=== PATIENT | male | born 1980 | race Two or more races ===

== ENCOUNTER 2024-09-12 20:27 | Emergency (ER) | payer MEDICAID, SELFPAY ==
[2024-09-12 20:27] VITALS: BMI 37.5
[2024-09-12 21:04] VITALS: BP 167/97; PULSE 107; RESP 18; TEMP 36.8; O2SAT 96
--- NOTE | 2024-09-12 21:19 | PD.EDRME ---
Rapid Medical Screening Exam [facility] Arrival date/time: 09/12/24 20:27 43M with no significant PMH presents to ED with R eye pain and bleeding after he accidentally hit himself in the eye with something. Chief Complaint: Eye Problems Vital signs: Vital Signs Temperature 98.2 F 09/12/24 21:04 Pulse Rate 107 H 09/12/24 21:04 Respiratory Rate 18 09/12/24 21:04 Blood Pressure 167/97 H 09/12/24 21:04 Pulse Oximetry (%) 96 09/12/24 21:04 Oxygen Delivery Method Room Air 09/12/24 21:04
--- NOTE | 2024-09-12 21:39 | XR_ITS ---
Examination: CT orbits without intravenous contrast. 2-D sagittal reconstructions. 3-D reconstructions. Date and time of exam:September 12, 2024 1056 hours INDICATIONS: Injury to the right orbit today, I pain CTDI: vol (mGy):17.9 DLP: (mGycm):235 Technique: Multiple axial images of maxillofacial region, 3.0 mm slice thickness. 2-D sagittal and coronal reconstructions. 3-D reconstructions. Low dose protocols were performed. One or more of the following dose reduction techniques were used; automated exposure control, adjustment of the mA and/or KV according to patient size, use of iterative reconstruction technique. Findings: The optic globes appear intact No displacement of the optic lenses Symmetrical optic nerves No retro-orbital hematoma Mild soft tissue swelling anterior to the right optic globe The orbital rims appear intact No nasal bone fracture No depression zygomatic arches IMPRESSION: The optic globes appear intact No retro-orbital hematoma Mild soft tissue swelling anterior to the right optic globe Orbital rims appear intact No opaque foreign body
--- NOTE | 2024-09-12 21:40 | PD.EDEYE ---
ED Eye Problem RME/HPI General Chief complaint: Eye Problems Stated complaint: RT EYE INJURY Time Seen by Provider: 09/12/24 21:37 Arrival date/time: 09/12/24 20:27 RME / HPI RME / HPI Narrative: 43-year-old with no significant past medical history, came in for evaluation regarding a right eye injury. Patient accidentally hit himself with a can of jalapeno resulting into pain, and abrasion to the cornea. Patient denies any blurry vision or changes in vision. Patient complained of pain, described as dull ache, severity moderate. Also complained of blood-tinged tears. Denies any headache denies any other injury no medication was taken prior to arrival. Related Data Previous Rx's ?Medication ?Instructions ?Recorded ibuprofen 800 mg tablet 800 mg PO TID PRN pain #30 tabs 09/12/24 neomycin 3.5 mg-polymyxin 10,000 1 drp ophthalmic (eye) Q6H 7 days 09/12/24 unit-hydrocort 10 mg/mL eye #7.5 mL drop,susp Allergies Allergy/AdvReac Type Severity Reaction Status Date / Time No Known Allergies Allergy Verified 05/21/23 05:35 Review of Systems Review of Systems Narrative Review of Systems: Review of system reviewed and within normal limits except mentioned in HPI ED Exam Narrative Physical exam: VITAL SIGNS: Reviewed. GENERAL APPEARANCE: Alert and interactive, follows commands, no acute distress, HEAD AND FACE: Non-traumatic. ENT: PERRL, injected conjunctiva, abrasion noted at 3 o'clock position in the conjunctiva, cornea is intact, eyelid no trauma, no streaming noted on the right eyeball, conjunctiva cornea mucous membrane moist. Full range of motion of the eyeball without any limitation. Able to see finger counting at 2 feet on the right eye NECK: Supple, nontender, no nuchal rigidity. CHEST: No tenderness, no crepitus, no paradoxical movement, no retractions. LUNGS: Clear, well ventilated, symmetric, no rales, no wheezing, no ronchi, no stridor, good breath sounds bilaterally. HEART: Regular rate, regular rhythm, no murmur, no gallops. ABDOMEN: Soft, positive bowel sounds, nondistended, no guarding, nontender, no rebound, no masses, RECTAL: Deferred. GENITAL: Deferred. NEUROLOGICAL: Gross motor function intact sensory function intact, Appropriate for age. MUSCULOSKELETAL: low back nontender, full range of motion. EXTREMITIES: Nontender, full range of motion. SKIN: Color pink, dry, no rash, no lacerations, no abrasions, no contusions. LYMPHATICS: Deferred. Course Quality Measures none Orders Category Date Time Status Visual Acuity NOW Care 09/12/24 21:[address] orbit BI wo con Stat Exams 09/12/24 21:39 Completed Fluorescein Sodium [[id number]] Med 09/12/24 21:19 Discontinued 1 mg RIGHT EYE X1 ONE HYDROcodone*/APAP 5/325 [[place] 5/325] Med 09/12/24 21:39 Discontinued 1 tab PO X1 ONE TARIQ/POLY/HC (Cortisporin) OP [Cortisporin Op Bettye] Med 09/12/24 21:39 Discontinued See Dose Instructions RIGHT EYE X1 ONE TETRACAINE Op Ana 0.5% [Pontocaine Op Ana 0.5%] Med 09/12/24 21:19 Discontinued 1 drop RIGHT EYE X1 ONE Tet,Diphth,Pertuss(Acell)-Tdap [Boostrix Vacc] Med 09/12/24 21:39 Discontinued 0.5 ml IMI .ONCE ONE Vital Signs Vital signs: Vital Signs Temperature 98.2 F 09/12/24 21:04 Pulse Rate 107 H 09/12/24 21:04 Respiratory Rate 18 09/12/24 21:04 Blood Pressure 167/97 H 09/12/24 21:04 Pulse Oximetry (%) 96 09/12/24 21:04 Oxygen Delivery Method Room Air 09/12/24 21:04 Eye MDM Narrative MDM Narrative:: 43-year-old with no significant past medical history, came in for evaluation regarding a right eye injury. Patient accidentally hit himself with a can of [place] resulting into pain, and abrasion to the cornea. Patient denies any blurry vision or changes in vision. Patient complained of pain, described as dull ache, severity moderate. Also complained of blood-tinged tears. Denies any headache denies any other injury no medication was taken prior to arrival. Eye was examined under the Gardner lamp. Tetracaine ophthalmic drop was administered to the eye and fluorescein strip was applied and was then illustrated under the Gardner lamp. Abrasion noted on the conjunctiva, at 3 o'clock position, no abrasion noted on the cornea, no foreign body noted .no streaming noted. Eye was then irrigated with copious amounts of eye stream. Procedure was well tolerated by patient. Verbalized understanding. CT scan of the orbit came back unremarkable. Results discussed with the patient Patient appears nontoxic and hemodynamically stable. Patient discharged home and instructed to follow-up with primary care provider in 24 to 48 hours. Instructed to return to the emergency department immediately if worsening of symptoms Patient data External records reviewed:: None Clinical information provided by:: none Social determinants that could affect healthcare access:: none Patient has the following chronic illnesses:: None How is presenting disease/condition affected by chronic disease/condition?: no chronic disease Evaluation data The following diagnostics were reviewed and interpreted by me:: radiology exam(s) Lab and/or radiology exams considered but not ordered:: none Interpretation Summary: CT scan of the orbit came back unremarkable as read by radiologist. Medications / Prescriptions Medications or Prescriptions considered but not ordered:: None Medication administrations:: Medication Administration History Discontinued Medications Hydrocodone Bitart/Acetaminophen (Hydrocodone/Apap 5/325 Tablet) 1 tab PO X1 ONE Stop: 09/12/24 21:40 Last Admin: 09/12/24 22:23 Dose: 1 tab Documented By: Diphtheria/Tetanus/Acell Pertussis (Diphth,Pertuss(Acell),Tet Vac 0.5 Ml Vial) 0.5 ml IMi .ONCE ONE Stop: 09/12/24 21:40 Last Admin: 09/12/24 22:23 Dose: 0.5 ml Documented By: Fluorescein Sodium (Fluorescein Sod 1 Mg Strp) 1 mg RIGHT EYE X1 ONE Stop: 09/12/24 21:20 Last Admin: 09/12/24 22:23 Dose: 1 mg Documented By: Neomycin/Polymyxin/Hydrocortisone (Tariq/Poly/Hc (Cortisporin) Op Susp 7.5 Ml Btl) 0 drop RIGHT EYE X1 ONE Stop: 09/12/24 21:40 Last Admin: 09/12/24 22:23 Dose: 2 drops Documented By: Tetracaine HCl (Tetracaine Pf Op Ana 0.5% 4 Ml Drpette) 1 drop RIGHT EYE X1 ONE Stop: 09/12/24 21:20 Last Admin: 09/12/24 22:22 Dose: 1 drop Documented By: Patient received [place], Boostrix, Cortisporin eyedrops, and tetracaine Consultations Consultation(s) initiated? (list below): No Diagnosis Eye Problem Differential Diagnosis: corneal abrasion, conjunctivitis and other (Conjunctival abrasion) Most likely diagnosis given after review of the tests above:: Conjunctival abrasion Admission Indicated Admission indicated?: not indicated Explain why admission is indicated or not indicated:: Stable Admission Request Was there a request for admission?: No Admission Attestation Admission request attestation: None Disposition Plan Disposition Plan: Discharge Discharge Attestation Discharge Attestation: The patient was given an opportunity to ask questions and understood the discharge instructions. Discharge instructions specifically effects, indications for sooner follow up or return to the emergency department, and the expected course of current diagnosis. Patient condition: Stable Discharge Plan Plan Patient Disposition: HOME (Self Care) Disposition Comment: Stable Prescriptions/Referrals Prescriptions/Med Rec: New [id number] 3.5-10,000-10 mg-unit-mg/mL drops,suspension 1 drp ophthalmic (eye) Q6H 7 Days Qty: 7.5 0RF ibuprofen 800 mg tablet 800 mg PO TID PRN (Reason: pain) Qty: 30 0RF Problem List Clinical Impression: Abrasion of conjunctiva Patient/Caregiver Discharge Instructions Discharge Activity: activity as tolerated Education Materials: How to Use Eye Drops, Bleeding in the Front of the ... Additional Instructions: Thank you for the opportunity for serving you today. You are stable for discharged . You are advised to: Follow-up with your PCP in a.m. and asked for referral to transformation specialist MD Return to ED for worsening of symptoms Increase oral fluids Take medication as prescribed/Cortisporin eyedrops 1 drop every 6 hours for 7 days Use your eye shield for the next 7 days Print Language: [place] Stand Alone Forms: Dilia Award Info., Patient Portal Info Letter PA/DARNELL Supervising Physician ZEB/DARNELL Supervising Physician: MD Addison
[2024-09-12] MEDS: TETRACAINE PF OP SOL 0.5% 4 ML DRPETTE 1 DROP RIGHT EYE (22:22)
[2024-09-12] MEDS: DIPHTH,PERTUSS(ACELL),TET VAC 0.5 ML VIAL IMi (22:23)
[2024-09-12] MEDS: FLUORESCEIN SOD 1 MG STRP RIGHT EYE (22:23)
[2024-09-12] MEDS: HYDROcodone/APAP 5/325 TABLET 1 TAB PO (22:23)
[2024-09-12] MEDS: NEO/POLY/HC (Cortisporin) OP SUSP 7.5 ML BTL RIGHT EYE (22:23)
== END 2024-09-12 23:29 | disposition home or self-care (01) ==
LOC: SERX 23:10
PROVIDERS: Emergency Provider Emergency Medicine
DX: S05.01XA Injury of conjunctiva and corneal abrasion without foreign body, right eye, initial encounter (principal); Z23 Encounter for immunization; W22.8XXA Striking against or struck by other objects, initial encounter
CPT/HCPCS: 70480; 90471; 90715; 99284; A9270

== ENCOUNTER 2025-05-04 09:42 | Emergency (ER) | payer MEDICAID, SELFPAY ==
[2025-05-04 09:43] VITALS: BMI 42.3
[2025-05-04 09:50] VITALS: BP 159/112; PULSE 109; RESP 18; TEMP 37.7; O2SAT 98
--- NOTE | 2025-05-04 09:56 | XR_ITS ---
Examination: CT soft tissue neck, with intravenous contrast. 2-D coronal reconstructions. 2-D sagittal reconstructions. Date and time of exam :May 04, 2025, 1255 hrs. Indications: Bilateral neck swelling with difficulty swallowing beginning 2 days ago. CTDI: vol (mGy):16.1 DLP: (mGycm):430 Technique: 1.25 mm axial sections of the neck of the obtained. Coronal and sagittal reconstructions have been obtained. Intravenous contrast administered 50 cc Isovue-370. Low dose protocols were performed. One or more of the following dose reduction techniques were used; automated exposure control, adjustment of the mA and/or KV according to patient size, use of iterative reconstruction technique. Findings: Maxillary antra are clear Enlarged soft tissue tonsillar prominence, discrete masslike area, 3.6 x 2.6 x 5.8 cm with significant effacement of the oropharyngeal airway Necrotic areas within this mass versus small abscesses, the largest 8 mm Epiglottis is not thickened The larynx does not exhibit mass Symmetrical thyroid glands Impression: Soft tissue left tonsillar mass, 3.6 x 2.6 x 5.8 cm, differential would include tonsillar carcinoma, tonsillar abscess Recommend short-term follow-up MRI soft tissue neck, pre and postcontrast, post antibiotic therapy
--- NOTE | 2025-05-04 09:57 | PD.EDRME ---
Rapid Medical Screening Exam RME Arrival date/time: 05/04/25 09:42 Chief Complaint: Dental/Oral/Throat Time Seen by Provider: 05/04/25 09:50 Vital signs: Vital Signs Temperature 99.8 F 05/04/25 09:50 Pulse Rate 109 H 05/04/25 09:50 Respiratory Rate 18 05/04/25 09:50 Blood Pressure 159/112 H 05/04/25 09:50 Pulse Oximetry (%) 98 05/04/25 09:50 Oxygen Delivery Method Room Air 05/04/25 09:50 E Narrative: Subjective fever, sore throat x3 days
[2025-05-04] MEDS: DEXAMETHASONE SOD PHOS INJ 10 MG/ML VIAL PO (10:18)
[2025-05-04 10:43] LABS: Basophils # (Auto) 0.1 Thou/mm3 (0.0-0.2); Basophils % (Auto) 0 % (0-2.5); Eosinophils # (Auto) 0.0 Thou/mm3 (0.0-0.5); Eosinophils % (Auto) 0 % (0-10); Hematocrit 48.9 % (41.0-53.0); Hemoglobin 16.3 g/dL (13.5-16.0); Immature Granulocytes Auto 0.06 Thou/mm3 (0.00-0.00); Lymphocytes # (Auto) 1.8 Thou/mm3 (1.0-4.8); Lymphocytes % (Auto) 10 % (10-50); Mean Corpuscular HGB Conc 33.3 g/dl (31.0-37.0); Mean Corpuscular Hemoglobin 28.7 pg (25.0-35.0); Mean Corpuscular Volume 86 fL (80-100); Monocytes # (Auto) 1.8 Thou/mm3 (0.0-0.8); Monocytes % (Auto) 10 % (0-12); Neutrophils # (Auto) 13.5 Thou/mm3 (1.8-7.7); Neutrophils % (Auto) 78 % (37-80); Nucleated Red Blood Cell # 0.00 Thou/mm3 (0.00-0.00); Nucleated Red Blood Cell % 0 /100 WBC (0); Platelet Count 222 Thou/mm3 (140-440); RDW Standard Deviation 44.1 fL (35.1-43.9); Red Blood Count 5.68 Miln/mm3 (4.50-5.90); White Blood Count 17.2 Thou/mm3 (3.8-10.6)
[2025-05-04 11:19] LABS: Alanine Aminotransferase 24 U/L (10-49); Albumin, Serum 4.7 gm/dL (3.5-5.0); Albumin/Globulin Ratio 1.3 (1.2-2.2); Alkaline Phosphatase 82 U/L (46-116); Anion Gap 10 (7-16); Aspartate Amino Transferase 21 U/L (0-34); BUN/Creatinine Ratio 10 Ratio (12-20); Bilirubin,Total 0.6 mg/dL (0.3-1.2); Blood Urea Nitrogen 10 mg/dL (9-23); Calcium 9.7 mg/dL (8.3-10.6); Calcium (Corrected) 9.7 mg/dL (8.5-10.1); Carbon Dioxide 23.5 mMol/L (20.0-31.0); Chloride 101 mMol/L (98-107); Creatinine (Component) 1.0 mg/dL (0.6-1.3); Estimated Creatinine Clearance 117.0 mL/min (>60); Globulin 3.5 gm/dL (2.3-3.5); Glucose 215 mg/dL (74-106); Osmolality,Calculated 273 (275-295); Potassium 3.8 mMol/L (3.4-5.1); Sodium 134 mMol/L (136-145); Total Protein 8.2 gm/dL (5.7-8.2); eGFR > 60 See Note
[2025-05-04 11:30] LABS: Strep A Rapid Negative (Negative)
--- NOTE | 2025-05-04 14:24 | PD.EDDENTL ---
ED Dental RME/HPI General Chief complaint: Dental/Oral/Throat Stated complaint: SORE THROAT/FEVER/BODY ACHES x 2 DAYS Time Seen by Provider: 05/04/25 09:50 Arrival date/time: 05/04/25 09:42 Limitations: no limitations RME / HPI RME / HPI Narrative: Subjective fever, sore throat x3 days DR. JENNIFER ARTHUR ED EVALUATION: 44-year-old male with past medical history of DM, hypothyroidism and hypertension presents to the Emergency Department with 2 days of fever, sore throat, and swelling to the back of the neck. Patient reports subjective fever and sore throat over the past 2 days. He has a history of oropharyngeal abscess as a child. Social history notable for heavy alcohol use, reporting 6?12 beers daily; denies ever having alcohol withdrawals. Related Data Previous Rx's ?Medication ?Instructions ?Recorded ibuprofen 800 mg tablet 800 mg PO TID PRN pain #30 tabs 09/12/24 Allergies Allergy/AdvReac Type Severity Reaction Status Date / Time No Known Allergies Allergy Verified 05/04/25 09:46 Review of Systems Review of Systems Systems Reviewed: All systems reviewed, normal except as documented Past Medical History Past Medical History CARDIAC: Positive Hypertension RESPIRATORY: Positive Asthma ENDOCRINE: Positive Diabetes Mellitus Type 2 Social History SMOKING STATUS: Current every day smoker SUBSTANCE USE: does not use ALCOHOL: Current ALCOHOL FREQUENCY: 3 or More Drinks per Day ED Exam General Limitations: Present no limitations General appearance: Present alert, in no apparent distress and other (chronically ill, decompensating; no stridor and handling well his secretions) Head Head exam: Present atraumatic and other (acute submandibular area edema) Eye Eye exam: Present normal appearance, PERRL and EOMI ENT ENT exam: Present mucous membranes moist and other (Uvula deviated to the right, patient with swelling to the left posterior oropharynx, erythema, patient with mild trismus, able to open his mouth approximately 2-1/2 finger widths. Patient with submandibular lymphadenopathy. Tongue is not elevated nor deviated.) Neck Neck exam: Present normal inspection, full ROM, trachea midline and lymphadenopathy; Absent tenderness Chest Chest inspection: Present normal inspection and symmetric chest wall rise Respiratory Respiratory exam: Present normal lung sounds bilaterally Cardiovascular Cardiovascular exam: Present normal rhythm and tachycardia Abdominal Exam Abdominal exam: Present soft; Absent distention, tenderness, guarding or rebound Extremities Exam Extremities exam: Present normal inspection and full ROM Back Exam Back exam: Present normal inspection and full ROM Neurological Exam Neurological exam: Present alert, oriented X3 and CN II-XII intact Psychiatric Psychiatric exam: Present normal affect and normal mood Skin Skin exam: Present warm, dry, intact and normal color Course Quality Measures none Orders Category Date Time Status Bedside Blood Glucose NOW Care 05/04/25 14:24 Completed Bedside COVID-19 Antigen Test NOW Care 05/04/25 09:48 Completed Bedside Influenza A&B Antigen Test NOW Care 05/04/25 09:[address] Screening NOW Care 05/04/25 09:56 Completed Structural Draftsman Q4H START 00 Care 05/04/25 14:24 Completed Insert IV NOW Care 05/04/25 14:24 Completed NPO NOW Care 05/04/25 14:25 Completed Strict Intake and Output Routine Care 05/04/25 14:24 Ordered Referral - Manager Convention Stat Cons 05/04/25 14:33 Active Diet NPO (NOW) Diet 05/04/25 14:[address] soft tissue neck w con Stat Exams 05/04/25 09:56 Completed XR chest 1V SEPSIS PROTOCOL Stat Exams 05/04/25 14:24 Completed Blood Culture (Lab) Stat Lab 05/04/25 10:12 Completed CBC Stat Lab 05/04/25 10:18 Completed CMP [Comprehensive Metabolic Panel] Stat Lab 05/04/25 10:18 Completed Lactate (Lactic Acid) Stat Lab 05/04/25 10:18 Completed Partial Thromboplastin Time Stat Lab 05/04/25 10:18 Completed Procalcitonin Stat Lab 05/04/25 10:18 Completed Prothrombin Time with INR Stat Lab 05/04/25 10:18 Completed Strep A Rapid Stat Lab 05/04/25 09:55 Completed Clindamycin 900Mg Ivpb [Cleocin/D5w Ivpb] 900 mg Med 05/04/25 14:22 Discontinued Pre-Mixed [Pre-mixed Bag] 1 bag IV X1 Dexamethasone Inj [Decadron Inj] Med 05/04/25 09:56 Discontinued 10 mg PO X1 ONE Piper/Tazo Inj [Zosyn Inj] 4.5 gm Med 05/04/25 14:23 Discontinued Sodium Chloride 0.9% (Pop) [NS 0.9% mini bag] 100 ml IV X1 Vancomycin Inj 2,000 mg Med 05/04/25 14:30 Discontinued Sodium Chloride 0.9% 500 ml [Ns] 500 ml IV X1 Vancomycin Pharmacy to Dose Med 05/04/25 14:23 Discontinued 1 each IV QDAY PRN Vancomycin/Ns 1 gm Ivpb 200 ml Med 05/04/25 22:00 Discontinued IV Q8HR Vancomycin/Ns 1 gm Ivpb 200 ml Med 05/05/25 14:00 Discontinued IV Q8HR Oxygen Delivery NOW RT 05/04/25 14:24 Completed Vital Signs Vital signs: Vital Signs Temperature 99.8 F 05/04/25 09:50 Pulse Rate 109 H 05/04/25 09:50 Respiratory Rate 18 05/04/25 09:50 Blood Pressure 159/112 H 05/04/25 09:50 Pulse Oximetry (%) 98 05/04/25 09:50 Oxygen Delivery Method Room Air 05/04/25 09:50 Dental / Oral MDM Narrative MDM Narrative:: I, Martha Narvaez, am scribing for and in the presence of Dr. Hansen. Patient p/w fever and swelling to his throat. Vital signs and exam as listed. Concern for RPA, [employer], Maury's angina. Patient has mild trismus. Has uvular deviation, and swelling to the left oropharyngeal area. Prior provider evaluated patient. Ordered labs and CT scan of the neck. With contrast. Labs with evidence of leukocytosis, 17.2, hemoglobin 16.3. Patient meets SIRS criteria. Sepsis order set placed. Labs without any acute electrolyte abnormalities. No transaminitis. Procalcitonin is not elevated. Strep swab is negative. Chest x-ray unremarkable. CT of the neck soft tissue with left tonsillar mass, 3.6 x 2.6 x 5.8 cm. Given size, and significant extension down the posterior oropharynx, provided patient with broad-spectrum antibiotics, ordered blood cultures, and initiated transfer for OMFS or ENT. 3:25p discussed case with [facility]. 4:34p Patient accepted to [facility] by Dr. Gia Hercules. Patient data External records reviewed:: [facility] previous records Clinical information provided by:: patient Social determinants that could affect healthcare access:: alcohol use (heavy alcohol use, reporting 6-12 beers daily) Patient has the following chronic illnesses:: Hypothyroidism and hypertension. He has a history of peritonsillar abscess as a child. How is presenting disease/condition affected by chronic disease/condition?: exacerbated by Evaluation data The following diagnostics were reviewed and interpreted by me:: lab results and radiology exam(s) Lab and/or radiology exams considered but not ordered:: none Interpretation Summary: Procedure(s): XR chest 1V SEPSIS PROTOCOL Accession Number(s): [id number] cc: Singh Christensen MD; Michael Medrano MD; Kaylie Hansen MD~ Examination: PA chest single view Technique: Upright PA chest single view Date and time: May 04, 2025, 1453 hrs. Indications: Fever bodyaches beginning 2 days ago. Findings: Mild prominence left ventricle Mild ectasia thoracic aorta. No pulmonary edema or pneumonia. The osseous structures are intact Impression: No pulmonary edema or pneumonia Dictated By: Michael Medrano MD Procedure(s): CT soft tissue neck w con Accession Number(s): [id number] cc: Singh Christensen MD; Michael Medrano MD; Delgado Fajardo PA-C~ Examination: CT soft tissue neck, with intravenous contrast. 2-D coronal reconstructions. 2-D sagittal reconstructions. Date and time of exam :May 04, 2025, 1255 hrs. Indications: Bilateral neck swelling with difficulty swallowing beginning 2 days ago. CTDI: vol (mGy):16.1 DLP: (mGycm):430 Technique: 1.25 mm axial sections of the neck of the obtained. Coronal and sagittal reconstructions have been obtained. Intravenous contrast administered 50 cc Isovue-370. Low dose protocols were performed. One or more of the following dose reduction techniques were used; automated exposure control, adjustment of the mA and/or KV according to patient size, use of iterative reconstruction technique. Findings: Maxillary antra are clear Enlarged soft tissue tonsillar prominence, discrete masslike area, 3.6 x 2.6 x 5.8 cm with significant effacement of the oropharyngeal airway Necrotic areas within this mass versus small abscesses, the largest 8 mm Epiglottis is not thickened The larynx does not exhibit mass Symmetrical thyroid glands Impression: Soft tissue left tonsillar mass, 3.6 x 2.6 x 5.8 cm, differential would include tonsillar carcinoma, tonsillar abscess Recommend short-term follow-up MRI soft tissue neck, pre and postcontrast, post antibiotic therapy Dictated By: Michael Medrano MD Medications / Prescriptions Medications or Prescriptions considered but not ordered:: none Medication administrations:: Medication Administration History Discontinued Medications Dexamethasone Sodium Phosphate (Dexamethasone Sod Phos Inj 10 Mg/Ml Vial) 10 mg PO X1 ONE Stop: 05/04/25 09:57 Last Admin: 05/04/25 10:18 Dose: 10 mg Documented By: ANITA Clindamycin Phosphate 900 mg/ (IV Miscellaneous Supplies) 50 mls @ 50 mls/hr IV X1 ONE Stop: 05/04/25 15:21 Last Infusion: 05/04/25 16:32 Dose: Infused Documented By: Admin: 05/04/25 16:02 Dose: 50 mls/hr Documented By: HARPREET Piperacillin Sod/Tazobactam (Sod 4.5 gm/ Sodium Chloride) 100 mls @ 200 mls/hr IV X1 ONE; Protocol Stop: 05/04/25 14:52 Last Infusion: 05/04/25 16:00 Dose: Infused Documented By: Admin: 05/04/25 15:27 Dose: 200 mls/hr Documented By: HARPREET Vancomycin HCl 2,000 mg/ (Sodium Chloride) 500 mls @ 150 mls/hr IV X1 ONE Stop: 05/04/25 17:49 Last Infusion: 05/04/25 18:05 Dose: 10 mg/min, 150 mls/hr Documented By: Admin: 05/04/25 16:33 Dose: 10 mg/min, 150 mls/hr Documented By: HARPREET Vancomycin/Sodium Chloride (Vancomycin/Ns 1 Gm Ivpb) 200 mls @ 120 mls/hr IV Q8HR JIM Stop: 05/12/25 13:59 Vancomycin/Sodium Chloride (Vancomycin/Ns 1 Gm Ivpb) 200 mls @ 120 mls/hr IV Q8HR JIM Stop: 05/05/25 07:39 Pharmacy Consult (Vancomycin Pharmacy To Dose 1 Each Each) 1 each IV QDAY PRN PRN Reason: PROTOCOL Stop: 06/03/25 14:22 see above Consultations Consultation(s) initiated? (list below): Yes Consultation #1 (Physician, Specialty, Details): We presented the case to [facility]. Time: 14:49 Consultation #2 (Physician, Specialty, Details): Discussed case with [facility]. Time: 15:25 Consultation #3 (Physician, Specialty, Details): Patient accepted to [facility] by Dr. Gia Hercules. Time: 16:34 Diagnosis Dental Differential Diagnosis: other (Deep neck space infection, peritonsillar abscess, and cellulitis.) Most likely diagnosis given after review of the tests above:: Oropharyngeal abscess Neck mass Admission Indicated Admission indicated?: not indicated Explain why admission is indicated or not indicated:: Patient needs higher level of care and will be transferred. Admission Request Was there a request for admission?: No Disposition Plan Disposition Plan: Transfer Critical Care Time Critical Care Time Critical Care Time: Yes Total Critical Care Time (min.): 60 Attestation: Due to a high probability of clinically significant, life threatening deterioration, the patient required my highest level of preparedness to intervene emergently and I personally spent this critical care time directly and personally managing the patient. This critical care time included obtaining a history; examining the patient; pulse oximetry; ordering and review of studies; arranging urgent treatment with development of a management plan; evaluation of patient's response to treatment; frequent reassessment; and, discussions with other providers. This critical care time was performed to assess and manage the high probability of imminent, life-threatening deterioration that could result in multi-organ failure. It was exclusive of separately billable procedures and treating other patients and teaching time. Please see MDM section and the rest of the note for further information on patient assessment and treatment. Discharge Plan Plan Patient Disposition: [facility] Pt Being Transferred to: [facility] Service Needed for Transfer: Otolaryngology (ENT) Prescriptions/Referrals Prescriptions/Med Rec: No Action ibuprofen 800 mg tablet 800 mg PO TID PRN (Reason: pain) Qty: 30 0RF Referrals: Singh Christensen MD [Primary Care Provider, Family Practice] - In 1 week Problem List Clinical Impression: Dental abscess Patient/Caregiver Discharge Instructions Print Language: Turkish Stand Alone Forms: Dilia Award Info., Patient Portal Info Letter
[2025-05-04 14:50] LABS: Lactate (Lactic Acid) 1.4 mMol/L (0.4-2.0)
[2025-05-04 14:51] VITALS: BP 165/109; PULSE 103; RESP 17; TEMP 37.2; O2SAT 97
[2025-05-04 14:51] LABS: INR 1.2 (0.9-1.3); Partial Thromboplastin Time 30.4 Seconds (22.0-36.0); Prothrombin Time 12.7 Seconds (9.0-12.2)
--- NOTE | 2025-05-04 14:55 | PC.CC ---
Addendum entered by Vandana Pillai RN 05/04/25 17:46: correction: transfer packet given to ROSA Cristina Addendum entered by Vandana Pillai RN 05/04/25 17:42: transfer packet w/1 CD taken to ROSA Moreira. Addendum entered by Vandana Pillai RN 05/04/25 17:01: Transport ETA OF 1800, call report to [phone]. ED Tracker updated with information Addendum entered by Vandana Pillai RN 05/04/25 17:01: 1609: Received call from ray Grewal accepted by Dr. Noe Hercules. Addendum entered by Vandana Pillai RN 05/04/25 15:12: 1510: Clinicals and imaging sent to [facility]. 1506: received call from Benito lehman/ [facility], ENT md stated this is a peritonsillar abscess, is not an ENT service and an ER doctor should be able to manage it. pt declined. Original Note: 1440: spoke to Benito lehman/ [facility], she spoke to Dr. Hansen. Benito will reach out to ENT and call me back. 1433: received transfer request for ENT for tonsillar mass. Clinicals sent to [facility] and [facility]
[2025-05-04 15:19] LABS: Procalcitonin 0.39 ng/ml (0.0-0.49)
[2025-05-04] MEDS: PIPER/TAZO INJ 4.5 GM in SODIUM CHLORIDE 0.9% (POP) 100 ML IV (15:27)
--- NOTE | 2025-05-04 16:01 | PC.NURSE ---
ED youth program director assist with IV abx administration while LVNs care for patient. Patients airway patent , in no distress, care ongoing
[2025-05-04] MEDS: CLINDAMYCIN 900MG IVPB 900 MG in PRE-MIXED 1 BAG 50 MG IV (16:02)
[2025-05-04] MEDS: Vancomycin Inj 2,000 MG in SODIUM CHLORIDE 0.9% 500 ML 500 ML 150 MG IV (16:33)
[2025-05-04 17:14] VITALS: BP 152/97; PULSE 112; RESP 18; TEMP 37.4; O2SAT 98
--- NOTE | 2025-05-04 17:17 | PC.NURSE ---
Report given to [facility] at 1716. Patient vitals updated. Patient Vanco stopped prior to transport.
[2025-05-04 17:45] VITALS: PULSE 112; RESP 16; RESP 98
== END 2025-05-04 17:50 | disposition short-term general hospital (02) ==
PROVIDERS: Physician Assistant; Emergency Provider Emergency Medicine; PCP Family Medicine
DX: K04.7 Periapical abscess without sinus (principal); J35.8 Other chronic diseases of tonsils and adenoids; F17.210 Nicotine dependence, cigarettes, uncomplicated
CPT/HCPCS: 36415; 70491; 71045; 80053; 83605; 84145; 85025; 85610; 85730; 87040; 87081; 87400; 87651; 87811; 96365; 96366; 99285; A4649; J0736; J1100; J2543; J3373; J7999; Q9967